=== PATIENT | male | born 1945 | race Caucasian/White ===

== ENCOUNTER 2017-10-10 20:18 | Emergency (ER) | payer MEDICARE ==
[2017-10-10 20:24] VITALS: BP 171/90
--- NOTE | 2017-10-10 20:24 | ER Report ---
History and Physical Time Seen By MD: 20:20 HPI/ROS CHIEF COMPLAINT: Foot swelling and drainage HISTORY OF PRESENT ILLNESS: 71-year-old male type II diabetic traveling. He injured his foot. He was unaware of the in severity of the injury due to his neuropathy. Patient noted that his foot started draining 2 days ago. His become red and swollen. He's also notes some left leg swelling. He's had no fever or chills. He denies foot pain. Allergies: Coded Allergies: No Known Drug Allergies (Unverified , 10/10/17) Home Meds Active Scripts Ciprofloxacin Hcl (CIPRO) 500 Mg Tablet, 500 MG PO BID for infection, #14 Prov:NEHEMIAS SHELBY DO 10/10/17 Clindamycin Hcl (CLINDAMYCIN HCL) 300 Mg Capsule, 300 MG PO TID, #20 CAPSULE 1 capsule 3 times daily Prov:NEHEMIAS SHELBY DO 10/10/17 Reported Medications Lisinopril (LISINOPRIL) 20 Mg Tablet, 20 MG PO QDAY, TAB 10/10/17 Atenolol (ATENOLOL) 25 Mg Tablet, 1 TAB PO BID, TAB 10/10/17 Levothyroxine Sodium (LEVOTHYROXINE SODIUM) 50 Mcg Tablet, 50 MCG PO QDAY, TAB 10/10/17 Insulin Glargine 100 Un/Ml Pen (LANTUS SOLOSTAR PEN) 100 Unit/1 Ml Insuln.pen, 100 UNIT SQ, ML 10/10/17 Metformin Hcl (METFORMIN HCL) 1,000 Mg Tablet, 1 TAB PO BID, TAB 10/10/17 Past Medical/Surgical History Hypertension, type II diabetes, insulin required, hypercholesterolemia, hypothyroidism Reviewed Nurses Notes: Yes Old Medical Records Reviewed: Yes Constitutional Vital Sign - Last 24 Hours 10/10/17 20:24 Temp 98.3 Pulse 73 Resp 16 B/P (MAP) 171/90 Pulse Ox 92 O2 Delivery Room Air Physical Exam General appearance: Alert no distress. Vital signs stable, afebrile, pulse ox normal Respiratory: Chest is non tender, lungs are clear to auscultation. Cardiac: Regular rate and rhythm Extremities: Examination of the left lower extremity reveals soft tissue swelling to the lateral side of the foot at the base of the 5th toe. There is some large callus and loose tissue noted. DIFFERENTIAL DIAGNOSIS: After history and physical exam differential diagnosis was considered for colitis, type [facility], diabetic wound, osteomyelitis, Medical Decision Making EKG/Imaging Imaging X-ray: Left foot, 3 views was obtained. I viewed the images myself on the PACS system. My interpretation of the images is: No fracture no dislocation or malalignment. The radiologist interpretation had no clinically significant variation from this interpretation. Results: Ultrasound of the left lower extremity venous Doppler was obtained. The results of the study are no evidence of deep venous thrombosis. The study was read by the radiologist. I viewed the images myself on the PACS system. ED Course/Re-evaluation ED Course Patient was admitted to an examination room. H&P was done. The differential diagnoses was considered. On clinical examination. Patient has a large area of erythema and soft tissue swelling in the lateral aspect of the left foot. There is swelling of the leg. X-rays show no evidence of osteomyelitis. Ultrasound of the left lower extremity reveals no evidence of DVT. Patient be covered with clindamycin and Cipro for potential diabetic infection. He's advised to follow-up with his doctor upon returning home. Decision to Disposition Date: Oct 10, 2017 Decision to Disposition Time: 21:49 Depart Departure Latest Vital Signs Vital Signs Date Time Temp Pulse Resp B/P (MAP) Pulse Ox O2 Delivery O2 Flow Rate FiO2 10/10/17 20:24 98.3 73 16 171/90 92 Room Air Impression: Primary Impression: Cellulitis of left foot Additional Impressions: Diabetic neuropathy Left leg swelling Condition: Improved Disposition: HOME OR SELF-CARE New Scripts Ciprofloxacin Hcl (CIPRO) 500 Mg Tablet 500 MG PO BID for infection, #14 Prov: NEHEMIAS SHELBY DO 10/10/17 Clindamycin Hcl (CLINDAMYCIN HCL) 300 Mg Capsule 300 MG PO TID, #20 CAPSULE 1 capsule 3 times daily Prov: NEHEMIAS SHELBY DO 10/10/17 Patient Instructions: Cellulitis (ED) Additional Instructions: Take antibiotics as prescribed Perform warm soaks once or twice daily Follow-up with your primary care physician if unimproved in 3-5 days Problem Qualifiers Additional Impressions: Diabetic neuropathy Diabetes mellitus type: type 2 Diabetes mellitus complication detail: diabetic polyneuropathy Qualified Codes: E11.42 - Type 2 diabetes mellitus with diabetic polyneuropathy NEHEMIAS SHELBY DO Oct 10, 2017 20:24
[2017-10-10] MEDS ORDERED: INSU100I30 SQ (20:30)
[2017-10-10] MEDS ORDERED: METF-421 PO (20:30)
[2017-10-10] MEDS ORDERED: LEVO50TA86 PO (20:31)
[2017-10-10] MEDS ORDERED: LISI20TA29 PO (20:31)
[2017-10-10] MEDS ORDERED: ATEN-65 PO (20:31)
--- NOTE | 2017-10-10 21:27 | RADIOLOGY IMAGING REPORT ---
FACILITY: [facility] PATIENT NAME: Justin Lea : 1945 MR: [id number] V: [id number] EXAM DATE: ORDERING PHYSICIAN: NEHEMIAS SHELBY TECHNOLOGIST: Location: [facility] [place] Patient: Justin Lea : 1945 Visit/Account:[id number] Date of Sevice: 10/10/2017 EXAMINATION: Left foot 3 views HISTORY: Injury 3 weeks ago. Open wound. Diabetic. COMPARISON: None. FINDINGS: No evidence of acute fracture or dislocation in the left foot. Generalized osteopenia. There are mild hammertoe deformities of all 5 toes. Small plantar calcaneal spur. No aggressive osseous findings or radiographic evidence of osteomyelitis. Diffuse soft tissue swelling along the left foot. IMPRESSION: 1. No acute osseous findings in the left foot. 2. Osteopenia with mild degenerative changes. 3. Diffuse soft tissue swelling. Report Dictated By: Pravin Samuel MD at 10/10/2017 9:22 PM Report E-Signed By: Pravin Samuel MD at 10/10/2017 9:23 PM WSN:[id number]
[2017-10-10] MEDS ORDERED: CIPR-344 PO (21:53)
[2017-10-10] MEDS ORDERED: CLIN300C99 PO (21:53)
[2017-10-10] MEDS ORDERED: CIPROFLOXACIN 500 MG TAB PO ONE (22:00)
[2017-10-10] MEDS ORDERED: CLINDAMYCIN 150 MG CAP PO ONE (22:00)
--- NOTE | 2017-10-10 22:11 | RADIOLOGY IMAGING REPORT ---
FACILITY: [facility] PATIENT NAME: Justin Lea : 1945 MR: [id number] V: [id number] EXAM DATE: ORDERING PHYSICIAN: NEHEMIAS SHELBY TECHNOLOGIST: Location: [facility] Patient: Justin Lea : 1945 Visit/Account:[id number] Date of Sevice: 10/10/2017 EXAMINATION: Left Lower Extremity Venous Ultrasound HISTORY: Leg swelling. TECHNIQUE: Ultrasound evaluation of the left lower extremity veins was performed with color and spec tral Doppler and compression views. COMPARISON: None. FINDINGS: The left common femoral, femoral, proximal deep femoral, popliteal, and segmentally visualized deep c janes veins are patent and compressible, without evidence of intraluminal thrombus. The visualized upp er greater saphenous vein is patent. IMPRESSION: Normal exam. No evidence of DVT in the left leg. Report Dictated By: Pravin Samuel MD at 10/10/2017 10:06 PM Report E-Signed By: Pravin Samuel MD at 10/10/2017 10:07 PM WSN:[id number]
== END 2017-10-10 22:07 | disposition home or self-care (01) ==
LOC: ER 20:37
DX: L03.116 Cellulitis of left lower limb (principal); E11.42 Type 2 diabetes mellitus with diabetic polyneuropathy
CPT/HCPCS: 73630; 93971; 99284; A9270